=== PATIENT | male | born 1990 | race Caucasian/White ===

== ENCOUNTER 2021-04-03 16:46 | Emergency (ER) | payer MEDICAID, OTHER ==
[~2021-04-03] VITALS: Ht 180.3 cm; Wt 100.0 kg
[2021-04-03 16:53] VITALS: BP 126/88
== END 2021-04-03 23:15 | disposition left against medical advice (07) ==
LOC: ER 16:46
DX: Z53.21 Procedure and treatment not carried out due to patient leaving prior to being seen by health care provider (principal)